=== PATIENT | male | born 1950 | race Caucasian/White ===

== ENCOUNTER 2023-09-11 13:34 | Day surgery (SDC) | payer MEDICARE ==
[~2023-09-11] VITALS: Ht 177.8 cm; Wt 147.9 kg
[2023-09-11] VITALS (8 sets, daily range): BP systolic 133–181; BP diastolic 63–83; PULSE 65–90; TEMP 98.1–98.7
[~2023-09-11 13:34] MED LIST: ASPIRIN 81M81 MG/TA2 PO; LUTEIN1 BEA; TENORMIN 2525 MG/TAB PO; ZYLOPRIM 300MG300 MG PO
[2023-09-11] MEDS ORDERED: FLOMAX 0.40.4 MG/CAP PO (15:07)
[2023-09-11] MEDS ORDERED: COZAAR 50MG50 MG/TAB PO (15:08)
[2023-09-11] MEDS ORDERED: GLUCOPHAGE500 MG/TAB PO (15:08)
[2023-09-11] MEDS ORDERED: LOPRESSOR 225 MG/TAB PO (15:08)
[2023-09-11] MEDS ORDERED: MULTI VITAMINS1 TAB PO (15:10)
[2023-09-11] MEDS ORDERED: COLACE 100100 MG/CAP PO (15:10)
[2023-09-11] MEDS ORDERED: CINNAMON500 MG PO (15:10)
[2023-09-11] MEDS ORDERED: TORADOL 10MG TA10 MG PO (15:11)
[2023-09-11] MEDS ORDERED: VTAMINC250TA PO (15:12)
[2023-09-11] MEDS ORDERED: VITAMIN B COMPL1 SGL PO (15:12)
--- NOTE | 2023-09-11 15:13 | NUR ---
PATIENT STATES THAT HE DID NOT TAKE ANY MEDICATIONS TODAY. MEDICATION LIST OBTAINED FROM HISTORY AND PHYSICAL AND PRIOR MEDICATIONS FILLED AT PHARMACY.
--- NOTE | 2023-09-11 18:05 | NUR ---
pt admitted to room from pacu, at bedside. pt a&ox4, denies pain. vss. med rec and admission assessment complete. call light in reach.
--- NOTE | 2023-09-11 20:00 | NUR ---
PT READY FOR DISCHARGE. REVIEWED DISCHARGE INSTRUCTIONS WITH PT AND SPOUSE. REMOVED INT FROM LT WRIST, ANGIOCATH INTACT. HAS VOIDED X2, DRANK WATER AND ATE JELLO AND PUDDING. DENIES PAIN. REPORTS HE HAS TRAMADOL AT HOME FOR PAIN.
--- NOTE | 2023-09-11 20:08 | NUR ---
AMBULATED PER HIS REQUEST TO PRIVATE VEHICLE. PERSONAL BELONGINGS SENT WITH PT WELL DISCHARGE INSTRUCTIONS.
== END 2023-09-11 20:08 | disposition home or self-care (01) ==
LOC: SDCO 13:34 → SURG 18:05 → SDCO 20:08
DX: N20.2 Calculus of kidney with calculus of ureter (principal); I10 Essential (primary) hypertension; G47.33 Obstructive sleep apnea (adult) (pediatric); Z79.899 Other long term (current) drug therapy
CPT/HCPCS: OP; C1769; C2617; J0690; J1100; J1885; J2405; J2704; J3010